=== PATIENT | male | born 1950 | race Caucasian/White ===

== ENCOUNTER 2018-03-13 07:37 | Day surgery (SDC) | payer MEDICARE, BC ==
[~2018-03-13] VITALS: Ht 175.3 cm; Wt 100.5 kg
[~2018-03-13 07:37] MED LIST: ASPI81 PO; DIAZ2 PO; FISH300C2 PO; GEMF600 PO; HYDR12.56 PO; LEXA20TA PO; LOPE2 PO; LOSA25TA31 PO; SIMV20 PO; TYLE3 PO; VITA100T15 PO
[2018-03-13] MEDS ORDERED: IOHEXOL 350 MG/ML 50 ML BTL (for Cath Lab) OTHER ONE (07:38)
[2018-03-13 08:14] VITALS: BP 143/76; PULSE 69; RESP 18; TEMP 99.2; O2SAT 95
[2018-03-13] MEDS ORDERED: POTA10CA PO (08:17)
[2018-03-13] MEDS ORDERED: TERA5CAP3 PO (08:17)
[2018-03-13] MEDS ORDERED: FISHCAP4 PO (08:17)
[2018-03-13] MEDS ORDERED: ZOLO50TA PO (08:17)
[2018-03-13] MEDS ORDERED: SOMA350T PO (08:17)
[2018-03-13] MEDS ORDERED: GEMF600T PO (08:17)
[2018-03-13] MEDS ORDERED: OMEP20TA93 PO (08:17)
[2018-03-13] MEDS ORDERED: LEVO.075 PO (08:17)
[2018-03-13] MEDS ORDERED: METO25TA3 PO (08:17)
[2018-03-13] MEDS ORDERED: HYDR7.5T76 PO (08:17)
[2018-03-13 08:29] LABS: AUTOMATED NEUTROPHIL # 5.2 TH/MM3 (1.8-7.7); BASOPHIL # 0.1 TH/MM3 (0-0.2); BASOPHIL % 0.9 % (0.0-2.0); EOSINOPHIL # 0.2 TH/MM3 (0-0.4); EOSINOPHIL % 2.6 % (0.0-4.0); HEMATOCRIT 40.6 % (39.0-51.0); HEMOGLOBIN 13.7 GM/DL (13.0-17.0); LYMPH % 26.9 % (9.0-44.0); LYMPHOCYTE # 2.2 TH/MM3 (1.0-4.8); MEAN CELL VOLUME 84.9 FL (80.0-100.0); MEAN CORPUSCULAR HEMOGLOBIN 28.6 PG (27.0-34.0); MEAN CORPUSCULAR HGB CONC 33.7 % (32.0-36.0); MEAN PLATELET VOLUME 7.7 FL (7.0-11.0); MONOCYTE # 0.6 TH/MM3 (0-0.9); NEUT % 62.6 % (16.0-70.0); PLATELET COUNT 293 TH/MM3 (150-450); RED BLOOD COUNT 4.77 MIL/MM3 (4.50-5.90); RED CELL DISTRIBUTION WIDTH 14.6 % (11.6-17.2); WHITE BLOOD COUNT 8.4 TH/MM3 (4.0-11.0)
[2018-03-13 08:42] LABS: INTERNATIONAL NORMALIZED RATIO 0.9 RATIO; PROTHROMBIN TIME - PATIENT 9.6 SEC (9.8-11.6)
[2018-03-13 08:51] LABS: BICARBONATE 26.8 MEQ/L (21.0-32.0); CREATININE 1.19 MG/DL (0.60-1.30)
[2018-03-13] MEDS ORDERED: NS 1000P @30 MLS/HR (KVO) IV SCH (09:00)
[2018-03-13] MEDS ORDERED: HEPARIN-NS/PF INJ 1,000 ML ONE (09:19)
[2018-03-13] MEDS ORDERED: MIDAZOLAM HCL 2 MG/2 ML VIAL ONE (09:19)
[2018-03-13] MEDS ORDERED: NITROGLYCERIN INJ 5 ML ONE (09:20)
[2018-03-13] MEDS ORDERED: HEPARIN SODIUM - IV 10,000 UNITS/10 ML VIAL ONE (09:20)
[2018-03-13] MEDS ORDERED: VERAPAMIL HCL 5 MG/2 ML VIAL ONE (09:32)
--- NOTE | 2018-03-13 10:28 | CATHPROC ---
[employer] HIS Report Study Information Study Number Admission Scheduled Start Study Start [id number] Mar 13 2018 7:37AM 03/13/2018 Mar 13 2018 9:25AM [facility]iac Catheterization Admit Source Facility Department Other [facility] Physician and Clinical Staff Initial Flavio Carmen Vp Genetic Vazquez Álvarez,NATALIE Vp Genetic Opal Thorpe,NATALIE Recorder Mariza Rao ,RT(R) Scrub Elvie Cuenca,RT(R) Procedures Performed Procedure Location (Site) Vessel Name Coronary Angiograms LCA Left Coronary Coronary Angiograms RCA Right Coronary L Heart Cath Wire insertion Radial (right) Radial Art. Equipment Time Screw Machine Operator Single Spindle Description Size Mfg Part Number Used/Scraped TRANSDUCER, TRUWAVE [id number] 09:32 HUMPHREY FIELDS * Used W/STOCKObatechCK *[id number] *[id number] 09:32 RFIDeas BLANKET,WARM AIR CCL * Used *[id number] 09:32 RFIDeas PACK, CCL CUSTOM * Used *[id number] 09:32 RFIDeas SUPPORT, ARTERIAL ADULT [id number] *[id number] Used [id number] 09:40 MEDTRONIC JL 3.5 DXTERITY CATHETER FR 5 Used *[id number] BAND, RADIAL COMPRESSION TR [id number] 10:15 Myla MEDICAL 24CM Used SHORT 24 *[id number] 09:32 LectureTools WIRE, EXCHANGE 260CM 3MMJ 260CM Used *[id number] 09:32 NAMIC MANIFOLD, 4 PORT * Used *[id number] 09:32 NYCOMED OMNIPAQUE, 350 MG, 150ML 150ML [id number] Used SHEATH, FR6 TRANSRADIAL RM*[id number] 09:32 TERGeoforce MEDICAL FR 6 Used SLENDER 10CM *[id number] History: Current Medications Medication Dosage/Unit Route Frequency Last Date/Time Taken LOPRESSOR FISH OIL Synthroid Zoloft History: Allergies Allergy Reaction No Known Allergies lisinopril metoprolol History: Risk Factors Family History of Hypertension Dyslipidemia Previous OR Previous Heart Failure Premature CAD Yes Yes No No No Prior Valve Prior PCI Prior CABG Surgery No No No Cerebrovascular Peripheral Artery Chronic Lung On Dialysis Diabetes Disease Disease Disease No No No No No History: Symptoms/Diagnosis Selection Items SOB History: Stress Tests Stress or Imaging Studies Performed Yes Standard Exercise Stress Test No Stress Echo No Stress Test SPECT Stress Test SPECT Result Stress Test SPECT Ischemia Risk/Extent Yes Positive Intermediate Stress Test CMR No Cardiac CTA Coronary Calcium Score No No History: Other Disease Selection Items CAD HTN History: Other Current Smoker Quit Packs a Day Years Used Pack Years No 30 Years Ago 1 10 10 Labs Hgb (g/dl) Hct (%) RBC (MIL/MM3) WBC (l/cumm) Platelets (thousands) 11.60-17.00 35.00-51.00 4.00-5.90 4.00-11.00 150.00-450.00 13.7 40.6 4.7 8.4 293 Glucose (mg/dl) BUN (mg/dl) Creatinine (mg/dl) BUN:Creatinine (1:x) 74.00-106.00 7.00-18.00 0.50-1.30 10.00-20.00 124 12 1.1 10.9 Na (meq/l) K (meq/l) 136.00-145.00 3.50-5.10 140 3.7 INR (PTT:PT) 0.90-1.10 0.9 CPK-MB (ng/ML) 0.50-3.60 Not Drawn Medication Medication Total Dose (Bolus/Oral) Medication Total Dosage/Unit 1% XYLOCAINE 5 mL FENTANYL 25 mcg RADIAL COCKTAIL 5 mL (Bolus) VERSED 0.5 mg Medications (Bolus/Oral) Medication Time Given Dosage/Unit Administered By Reason VERSED 03/13/2018 9:59:45 AM 0.5 mg Opal Thorpe 0.5 mg VERSED given in lab by Opal Thorpe RN in Left Hand via Peripheral IV. Ordered by Flavio Fields FENTANYL 03/13/2018 10:00:00 AM 25 mcg Opal Thorpe 25 mcg FENTANYL given in lab by Opal Thorpe RN in Left Hand via Peripheral IV. Ordered by Flavio Graham 1% XYLOCAINE 03/13/2018 10:00:28 AM 5 mL Flavio Fields 5 mL 1% XYLOCAINE given in lab by Flavio Fields in Right Radial via Subcutaneous. Ordered by Flavio Sosa Ntg 200mcg Verapamil 2.5mg Heparin RADIAL COCKTAIL 03/13/2018 10:02:04 AM 5 mL (Bolus) Flavio Fielsd 3000U 5 mL (Bolus) RADIAL COCKTAIL given in lab by Flavio Fields via Radial. Using [Solution Name]. O rdered by Flavio Fields. Reason: Ntg 200mcg Verapamil 2.5mg Heparin 4000U. Medication (Drip) Medication Time Given Dosage/Unit Concentration/Unit Diluent (ml) Solution IV Solutions 03/13/2018 9:30:51 AM 50 mL (IV) NaCl .9 Patient arrived on IV Solutions in Left Hand via Peripheral IV. Pump/Drip Flow using NaCl .9. Initial Case Assessment Cardiovascular HR Rhythm NIBP Chest Pain 62 sr 129/81 0 Edema Present Skin color Skin None Normal Warm Dry Circulatory - Right Pulses Dorsalis Pedis Femoral Radial 3 3 3 Scale (0,1,2,3,4,d) Circulatory - Left Pulses Dorsalis Pedis Femoral Radial 3 3 Scale (0,1,2,3,4,d) Neurological State Oriented to time-place- Alert Moves all extremities person Respiration - General Respiration Rate SpO2 (%) O2 (lpm) (B/min) 17 96 2 Final Case Assessment Cardiovascular HR Rhythm NIBP Chest Pain 62 sr 129/81 0 Edema Present Skin color Skin None Normal Warm Dry Circulatory - Right Pulses Dorsalis Pedis Femoral Radial 3 3 3 Scale (0,1,2,3,4,d) Circulatory - Left Pulses Dorsalis Pedis Femoral Radial 3 3 Scale (0,1,2,3,4,d) Neurological State Oriented to time-place- Alert Moves all extremities person Respiration - General Respiration Rate SpO2 (%) O2 (lpm) (B/min) 17 96 2 Chronological Log Time Study Chronological Log 9:18:26 Patient arrived via Bed. 9:18:31 Patient Name, D.O.B, / Armband Verified By R.N. Vitals capture started with the following parameters, Patient=Adult, Interval=5 min, Initial Pr lqgmng=110 mmHg, 9:24:31 Deflation Rate=5 mmHg, Cuff placed on Left Arm 9:29:09 HR=62 bpm, XNTE=955/81 mmhg, SpO2=93.0 %, Resp=20 B/min 9:30:36 Consent signed by the physician and the patient and verified by the [facility] staff. 9:30:37 Pre-op and post- op instructions given; patient acknowledges understanding of instructions. 9:30:40 Verbal Stimulation=2 Physical Stimulation=2 Airway=2 Respiration=2 TOTAL=8. (0=absent, 1=li mited, 2=present) 9:30:43 Allens test performed on the right radial and ulnar artery. 9:30:46 Patient has been NPO for More than 6Hrs. 9:30:47 Skin Breakdown- none per patient 9:30:48 Patient Warmer Placed on the Table. 9:30:49 [place]erson Prominences Protected 9:30:51 A # 20 IV was noted in the Hand (left). Grade = 0 9:30:51 Patient arrived on IV Solutions in Left Hand via Peripheral IV. Pump/Drip Flow using NaCl . 9. 9:30:52 History and physical on the chart or being dictated. Assessment: Initial Case, HR=62 BPM, Rhythm=sr, IFNY=130/81 mmhg, Chest Pain=0, Edema=None, Col or=Normal, Skin = Warm, Dry Right Pulses: [place] Ped=3, Femoral=3, Radial=3 9:30:52 Left Pulses: [place] Ped=3, Femoral=3 Neurological: State=Alert, Ox3, RAVI Respiration: Resp=17 B/min, SpO2=96 %, O2=2 lpm 9:31:45 Reference ECG taken 9:34:10 HR=62 bpm, XWYA=098/77 mmhg, SpO2=97.0 %, Resp=19 B/min, Pain=0, Nando=10, Baires=2 9:35:54 Right Radial and groin(s) prepped with 2% chlorhexidine, and draped after a 3 min. waiting t filomena. 9:36:03 MD paged 9:36:06 MD responded 9:38:10 Pressure channel 1 zeroed. 9:39:11 HR=61 bpm, HGKD=611/83 mmhg, SpO2=97.0 %, Resp=20 B/min, Pain=0, Nando=10, Baires=2 9:44:10 HR=60 bpm, ZLPQ=904/81 mmhg, SpO2=95.0 %, Resp=20 B/min, Pain=0, Nando=10, Baires=2 9:49:13 HR=58 bpm, GNHG=055/74 mmhg, SpO2=95.0 %, Resp=25 B/min, Pain=0, Nando=10, Baires=2 9:54:12 HR=60 bpm, FLXX=363/77 mmhg, SpO2=96.0 %, Resp=21 B/min 9:56:02 MD arrived. 9:59:11 GCMH=634/83 mmhg, SpO2=97.0 %, Resp=10 B/min Time Out. Correct patient, correct procedure, correct physician, labs, allergies, and equipment verified with director of cardiac cath lab 9:59:20 team present. Fire risk assesment completed (see hard stop sheet for coding). Time Out Concu rred by MD and individual staff in procedure. 9:59:42 Case Start 9:59:45 0.5 mg VERSED given in lab by Opal Thorpe RN in Left Hand via Peripheral IV. Ordered by Flavio Fields 10:00:00 25 mcg FENTANYL given in lab by Opal Thorpe RN in Left Hand via Peripheral IV. Ordered by Flavio Fields 5 mL 1% XYLOCAINE given in lab by Flavio Fields in Right Radial via Subcutaneous. Ordered by Donnie 10:00:28 Flavio Nicole 5 mL (Bolus) RADIAL COCKTAIL given in lab by Flavio Fields via Radial. Using [Solution Na me]. Ordered by 10:02:04 Flavio Fields Reason: Ntg 200mcg Verapamil 2.5mg Heparin 4000U. 10:02:18 Access site was Right Radial Artery. 10:02:45 A wire was inserted via Radial (right). 10:03:31 A SHEATH, FR6 Prelude Merit 11CM FR 6 was advanced into the Fem Art (right) using the Percu taneous technique. A JR 4.0 INFINITI CATHETER FR 5 was advanced over a wire. OMNIPAQUE, 350 MG, 150ML 150ML was us ed for 10:04:06 injections. 10:04:14 HR=72 bpm, IHME=350/64 mmhg, SpO2=95.0 %, Resp=13 B/min, Pain=0, Nando=10, Baires=2 Recorded Pressure: LV, HR=74, Condition=Condition 1 10:05:21 (Left Ventricle) LV 109/12/19 Recorded Pressure: LV, Ao, HR=65, Condition=Condition 1 10:05:33 (Left Ventricle) LV 103/1/11, (Aorta) Ao 107/60/85 10:06:07 The RCA was injected and visualized at various angles. OMNIPAQUE, 350 MG, 150ML 150ML used . 10:07:48 Catheter was removed A JL 3.5 DXTERITY CATHETER FR 5 was advanced over a wire. OMNIPAQUE, 350 MG, 150ML 150ML was us ed for 10:08:42 injections. 10:09:09 HR=66 bpm, GWIF=621/74 mmhg, SpO2=94.0 %, Resp=17 B/min, Pain=0, Nando=10, Baires=2 10:09:34 The LCA was injected and visualized at various angles. OMNIPAQUE, 350 MG, 150ML 150ML used . 10:14:08 HR=75 bpm, UPPQ=979/76 mmhg, SpO2=94.0 %, Resp=18 B/min, Pain=0, Nando=10, Baires=2 10:15:14 Catheter was removed Radial Compression Device Used. 9 mLs of air placed in BAND, RADIAL COMPRESSION TR SHORT 24 24C M. Affected 10:16:04 hand 96 % O2 saturation. 10:17:43 Case End (Physician broke scrub) Assessment: Final Case, HR=62 BPM, Rhythm=sr, LFUF=684/81 mmhg, Chest Pain=0, Edema=None, [place] r=Normal, Skin = Warm, Dry Right Pulses: [place] Ped=3, Femoral=3, Radial=3 10:18:07 Left Pulses: [place] Ped=3, Femoral=3 Neurological: State=Alert, Ox3, RAVI Respiration: Resp=17 B/min, SpO2=96 %, O2=2 lpm 10:18:13 Catheter(s) removed without difficulty 10:18:22 Sterile dressing applied to site 10:18:23 No case complications noted. 10:18:25 Cine recording checked. 10:18:28 Bedside Report will be given. 10:18:31 A Left Heart Cath was performed. 10:19:11 HR=66 bpm, JGSM=337/84 mmhg, SpO2=96.0 %, Resp=16 B/min 10:23:51 Vitals capture stopped. 10:24:00 [facility] End Study - Contrast Media Used In Study Contrast Total Opened (mL) Total Used (mL) Total Wasted (mL) Omnipaque 25 25 0 End Study - Maximum Contrast Load Max Contrast Load (mL) 456.8 End Study - Radiation Exposure Fluoro Time (minutes) 1.6 End Study - Sheaths Sheaths Pulled By Sheath Hold Time (min) Flavio Fields End Study - Patient Disposition Complications Transferred To Interventional Outcome No Telemetry Bed No attempt made
[2018-03-13] MEDS ORDERED: MISC INFORMATION XX ONE (10:30)
[2018-03-13] MEDS ORDERED: ASPI81CH6 CHEW (11:33)
[2018-03-13] MEDS ORDERED: AMLO10 PO (11:33)
--- NOTE | 2018-03-13 14:03 | EKG ---
Date Performed: 03/13/2018 Time Performed: 08:44:42 PTAGE: 67 years EKG: Sinus rhythm . Normal ECG NO PREVIOUS TRACING DOCTOR: Abel Boo Interpretating Date/Time 03/13/2018 14:01:44
[2018-03-13] MEDS ORDERED: DEXTROSE 50% IN WATER 50 ML VIAL(D50) IV PUSH PRN (14:30)
[2018-03-13] MEDS ORDERED: CHLORHEXIDINE GLUCONATE 4% SOLN 120 ML BTL TOPICAL SCH (14:30)
--- NOTE | 2018-03-13 15:37 | RADRPT ---
EXAM DATE: 03/13/2018 3:25 PM EDT AGE/SEX: 67 years / Male INDICATIONS: Evaluate for pneumonia, pneumothorax or communicable disease. Preop chest for CABG CLINICAL DATA: This is the patient's initial encounter. Patient reports that signs and symptoms have been present for 1 day and indicates a pain score of 0/10. MEDICAL/SURGICAL HISTORY: Cardiovascular disease. None. COMPARISON: No prior exams available for comparison. FINDINGS: A single AP view of the chest demonstrates the lungs to be symmetrically aerated without evidence of mass, infiltrate or effusion. The cardiomediastinal contours are unremarkable. Osseous structures a re intact. CONCLUSION: Negative examination. Electronically signed by: Yahir Tapia MD 03/13/2018 3:36 PM EDT
[2018-03-13 15:53] LABS: BILIRUBIN, URINE NEG (NEG); BLOOD, URINE NEG (NEG); GLUCOSE,URINE NEG (NEG); KETONE, URINE NEG (NEG); MUCUS URINE FEW /lpf (OCC); NITRITE,URINE NEG (NEG); URINE COLOR YELLOW (YELLW/STRAW); URINE LEUKOCYTE ESTERASE NEG (NEG)
[2018-03-13] MEDS ORDERED: INSULIN REGULAR (IV INFUSION) 100 UNITS in SODIUM CHLORIDE 0.9% INJ 99 ML IV PRN (16:00)
[2018-03-13 16:01] LABS: ALBUMIN 3.8 GM/DL (3.4-5.0); ALT (GPT) 23 U/L (12-78); AST (GOT) 19 U/L (15-37); DIRECT BILIRUBIN ADULT LESS THAN 0.1 MG/DL (0.0-0.2)
[2018-03-13 16:02] LABS: ALKALINE PHOSPHATASE 108 U/L (45-117); INDIRECT BILIRUBIN 0.1 MG/DL (0.0-0.8); TOTAL BILIRUBIN ADULT 0.2 MG/DL (0.2-1.0); TOTAL PROTEIN 7.3 GM/DL (6.4-8.2)
--- NOTE | 2018-03-13 17:00 | PD.CAR.PN ---
CVT Progress Note Subjective/Hospital Course: pt seen and evaluated / full consult to follow sts data discussed with pt pt undecisive about CABG vs high risk PCI/ wants to discuss further with Dr Doll RISK SCORES About the STS Risk Calculator Procedure: CAB Only Risk of Mortality: 0.663% Morbidity or Mortality: 8.646% Long Length of Stay: 2.7% Short Length of Stay: 59.988% Permanent Stroke: 0.657% Prolonged Ventilation: 5.044% DSW Infection: 0.307% Renal Failure: 2.09% Reoperation: 3.42% Objective: Vital Signs Date Time Temp Pulse Resp B/P (MAP) Pulse Ox O2 Delivery O2 Flow Rate FiO2 03/13/18 10:29 95 Room Air 03/13/18 08:14 99.2 69 18 143/76 (98) 95 Labs: Laboratory Tests Test 03/13/18 08:00 03/13/18 12:50 03/13/18 15:20 White Blood Count 8.4 TH/MM3 (4.0-11.0) Red Blood Count 4.77 MIL/MM3 (4.50-5.90) Hemoglobin 13.7 GM/DL (13.0-17.0) Hematocrit 40.6 % (39.0-51.0) Mean Corpuscular Volume 84.9 FL (80.0-100.0) Mean Corpuscular Hemoglobin 28.6 PG (27.0-34.0) Mean Corpuscular Hemoglobin Concent 33.7 % (32.0-36.0) Red Cell Distribution Width 14.6 % (11.6-17.2) Platelet Count 293 TH/MM3 (150-450) Mean Platelet Volume 7.7 FL (7.0-11.0) Neutrophils (%) (Auto) 62.6 % (16.0-70.0) Lymphocytes (%) (Auto) 26.9 % (9.0-44.0) Monocytes (%) (Auto) 7.0 % (0.0-8.0) Eosinophils (%) (Auto) 2.6 % (0.0-4.0) Basophils (%) (Auto) 0.9 % (0.0-2.0) Neutrophils # (Auto) 5.2 TH/MM3 (1.8-7.7) Lymphocytes # (Auto) 2.2 TH/MM3 (1.0-4.8) Monocytes # (Auto) 0.6 TH/MM3 (0-0.9) Eosinophils # (Auto) 0.2 TH/MM3 (0-0.4) Basophils # (Auto) 0.1 TH/MM3 (0-0.2) CBC Comment DIFF FINAL Differential Comment Prothrombin Time 9.6 SEC (9.8-11.6) Prothromb Time International Ratio 0.9 RATIO Activated Partial Thromboplast Time 29.8 SEC (24.3-30.1) Blood Urea Nitrogen 12 MG/DL (7-18) Creatinine 1.19 MG/DL (0.60-1.30) Random Glucose 124 MG/DL (74-106) Calcium Level 9.0 MG/DL (8.5-10.1) Sodium Level 140 MEQ/L (136-145) Potassium Level 3.7 MEQ/L (3.5-5.1) Chloride Level 104 MEQ/L (98-107) Carbon Dioxide Level 26.8 MEQ/L (21.0-32.0) Anion Gap 9 MEQ/L (5-15) Estimat Glomerular Filtration Rate 61 ML/MIN (>89) Total Bilirubin 0.2 MG/DL (0.2-1.0) Direct Bilirubin LESS THAN 0.1 MG/DL Indirect Bilirubin 0.1 MG/DL (0.0-0.8) Aspartate Amino Transf (AST/SGOT) 19 U/L (15-37) Alanine Aminotransferase (ALT/SGPT) 23 U/L (12-78) Alkaline Phosphatase 108 U/L (45-117) Total Protein 7.3 GM/DL (6.4-8.2) Albumin 3.8 GM/DL (3.4-5.0) Urine Color YELLOW (YELLW/STRAW) Urine Turbidity CLEAR (CLEAR) Urine pH 6.0 (5.0-8.5) Urine Specific [place] 1.032 (1.002-1.035) Urine Protein NEG mg/dL (NEG-TRACE) Urine Glucose (UA) NEG mg/dL (NEG) Urine Ketones NEG mg/dL (NEG) Urine Occult Blood NEG (NEG) Urine Nitrite NEG (NEG) Urine Bilirubin NEG (NEG) Urine Urobilinogen LESS THAN 2.0 MG/DL (LESS Urine Leukocyte Esterase NEG (NEG) Urine RBC LESS THAN 1 /hpf (0-3) Urine WBC LESS THAN 1 /hpf (0-5) Urine Mucus FEW /lpf (OCC) Microscopic Urinalysis Comment CULT NOT INDICATED Result Diagram: 03/13/18 0800 03/13/18 0800 Apoorva Granados Mar 13, 2018 17:00
--- NOTE | 2018-03-13 17:09 | RADRPT ---
EXAM DATE: 03/13/2018 5:04 PM EDT AGE/SEX: 67 years / Male INDICATIONS: Pre-Op CABG. CLINICAL DATA: This is the patient's initial encounter. Patient reports that signs and symptoms have been present for 1 day and indicates a pain score of 0/10. MEDICAL/SURGICAL HISTORY: Hypercholesterolemia. Hypertension. Bilateral hearing loss. Substanc e abuse.Violent behavior. Coronary artery disease. . Schrapnel removal. COMPARISON: No prior exams available for comparison. TECHNIQUE: Venous ultrasound of both lower extremities was performed from the inguinal ligament to t he proximal calf. Real-time, color Doppler and spectral tracing, compression and augmentation techni ques were used. FINDINGS: Right Leg: There is normal compressibility of the deep venous system from the inguinal region to the proximal calf. No echogenic clot is seen in the lumen of the common femoral, femoral, popliteal, an d posterior tibial veins. There is a normal response of the venous system to proximal and distal aug mentation and respiration. Left Leg: There is normal compressibility of the deep venous system from the inguinal region to the proximal calf. No echogenic clot is seen in the lumen of the common femoral, femoral, popliteal, and posterior tibial veins. There is a normal response of the venous system to proximal and distal augm entation and respiration. CONCLUSION: 1. The study is negative for bilateral lower extremity deep venous thrombosis. Electronically signed by: Sergei Ramirez MD 03/13/2018 5:08 PM EDT
--- NOTE | 2018-03-13 17:09 | MB ---
cc: Apoorva Granados Jacqueline R ARNP DATE: 03/13/2018 HISTORY OF PRESENT ILLNESS: A 67-year-old male, patient of Dr. Ana Doll and Dr. James Knight, who apparently started having some chest discomfort recently and underwent an exercise stress test, which was positive. Exercise stress test showed some moderate anterolateral ischemia. He underwent cardiac catheterization today by Dr. Fields, mid distal LAD of 80%, the diagonal was 70%, the circ was 80% and the RCA 70%, ejection fraction of 60%. We were consulted to evaluate and give opinion for coronary artery bypass graft. The patient also has a history of hypothyroidism, hyperlipidemia, hypertension, cervical spine stenosis, gastroesophageal reflux disease, benign prostatic hypertrophy, neuropathy. He did have an echocardiogram that showed an ejection fraction of 62%, no evidence of valvular disease. PAST SURGICAL HISTORY: Includes back surgery, colonoscopy. He had some hand injury, foot injury related to an injury from the [place] War. ALLERGIES: LISINOPRIL AND LOPRESSOR. HOME MEDICATIONS: 1. Amlodipine. 2. Aspirin. 3. Atorvastatin. 4. BuSpar 5. Fish oil 6. Gemfibrozil 7. Hydrocodone p.r.n. however, he is on 8. Metoprolol. 6. Omeprazole. 7. Potassium. 8. Soma. 9. Synthroid. 10. Terazosin. 11. Zoloft. FAMILY HISTORY: Father had coronary artery disease; however, from pancreatic cancer. Mother from old age. SOCIAL HISTORY: The patient is , retired postal service. Prior tobacco abuse, smoked for 10 years, quit 30 years ago. No alcohol. REVIEW OF SYSTEMS: GENERAL: No night sweats, fever, heat and cold intolerance. SKIN: No psoriasis, itching or hives. HEENT: No blurred vision, hearing loss. RESPIRATORY: Positive for shortness of breath. CARDIOVASCULAR: As above in the HPI. GENITOURINARY: No burning, frequency, urgency. CENTRAL NERVOUS SYSTEM: No history of TIA, CVA or seizure disorder. ENDOCRINOLOGY: Positive for hypothyroidism. PHYSICAL EXAMINATION: VITAL SIGNS: Blood pressure stable at 130/80, heart rate of 78. GENERAL: The patient is awake, alert, in no acute distress. HEENT: Head is normocephalic, atraumatic. Pupils equal and reactive. Oral mucosa pink, moist. NECK: Supple. No JVD. CARDIOVASCULAR: Sounds S1, S2. Regular rate and rhythm. No audible rubs, murmurs or gallops. LUNGS: Clear to auscultation. No wheezes, rales or rhonchi. ABDOMEN: Soft, nontender. No masses or organomegaly. EXTREMITIES: No cyanosis, clubbing, or edema. LABORATORY DATA: Sodium 140, potassium 3.7, BUN of 12, creatinine 1.19, hemoglobin 13, hematocrit of 40, white cell count 8.4, platelet count of 293. INR 0.9. Urinalysis is unremarkable. MRSA screen pending. IMAGING STUDIES: Chest x-ray unremarkable. Pulmonary function test study pending. Carotid ultrasound, leg vein mapping pending. ASSESSMENT AND PLAN: This is a very pleasant 67-year-old male with multivessel coronary disease. At this time, I would like to speak with his field artillery senior sergeant, Dr. Doll, in regards to the catheterization by Dr. Fields about possible staged PCI versus coronary artery bypass grafting. The films will be evaluated by Dr. Barraza and further information given. He can followup in our office, if the patient decides to proceed with surgery. SALONI Chopra MD JRT/ , 04:42 PM , 05:08 PM
--- NOTE | 2018-03-13 17:11 | RADRPT ---
EXAM DATE: 03/13/2018 5:02 PM EDT AGE/SEX: 67 years / Male INDICATIONS: Pre-Op CABG. CLINICAL DATA: This is the patient's initial encounter. Patient reports that signs and symptoms have been present for 1 day and indicates a pain score of 0/10. MEDICAL/SURGICAL HISTORY: Hypercholesterolemia. Hypertension. Bilateral hearing loss. Substanc e abuse.Violent behavior. Coronary artery disease. . Schrapnel removal. COMPARISON: No prior exams available for comparison. MEASUREMENTS: RIGHT THIGH: Proximal:__4 mm Mid:__ 4 mm Distal:__4 mm LEFT THIGH: Proximal:__3 mm Mid:__4 mm Distal:__4 mm RIGHT CALF: Proximal:__3 mm Mid:__2 mm Distal:__3 mm LEFT CALF: Proximal:__3 mm Mid:__2 mm Distal:__3 mm FINDINGS: The venous system of the lower extremities are patent by color Doppler imaging. Measurements of the leg veins (in mm) are listed above. CONCLUSION: Superficial venous system is patent with greater saphenous venous measurements given above. Electronically signed by: Sergei Ramirez MD 03/13/2018 5:10 PM EDT
[2018-03-13 17:33] LABS: HEMOGLOBIN A1C 5.7 % (4.3-6.0)
--- NOTE | 2018-03-13 17:36 | RADRPT ---
EXAM DATE: 03/13/2018 5:08 PM EDT AGE/SEX: 67 years / Male INDICATIONS: Pre-Op CABG. CLINICAL DATA: This is the patient's initial encounter. Patient reports that signs and symptoms have been present for 1 day and indicates a pain score of 0/10. MEDICAL/SURGICAL HISTORY: Hypercholesterolemia. Hypertension. Bilateral hearing loss. Substanc e abuse.Violent behavior. Coronary artery disease. . Schrapnel removal. COMPARISON: No prior exams available for comparison. VELOCITY PARAMETERS: ICA/CCA Ratio: Right 0.96 , Left 1.24 ICA: Right 90 cm/sec, Left 131 cm/sec CCA: Right 94 cm/sec, Left 106 cm/sec ECA: Right 120 cm/sec, Left 125 cm/sec Vertebral: Right 45 cm/sec antegrade, Left 32 cm/sec antegrade FINDINGS: Right Carotid: Mild heterogeneous plaque without evidence of significant stenosis is noted. Left Carotid: Mild heterogeneous plaque without evidence of significant stenosis is noted. Other: Antegrade flow is identified in both vertebral arteries. CONCLUSION: 1. Right Internal Carotid Artery: Findings indicate <50% stenosis. 2. Left Internal Carotid Artery: Findings indicate <50% stenosis. 3. Antegrade flow both vertebral arteries. Electronically signed by: Sergei Ramirez MD 03/13/2018 5:35 PM EDT
--- NOTE | 2018-03-19 01:31 | MA ---
cc: Flavio Fields DO DATE: 03/13/2018 PROCEDURE: Left heart catheterization, coronary angiogram, moderate sedation, 20 minutes. PREPROCEDURE DIAGNOSIS: Shortness of breath/chest pain, on multiple antianginals, abnormal stress test, abnormal CT of the coronaries. POSTPROCEDURE DIAGNOSIS: Multivessel coronary artery disease. MEDICATIONS: Versed 0.5 mg, fentanyl 25 mcg, verapamil 2.5 mg, nitroglycerine 200 mcg, heparin 4000 units. CONTRAST USED: 25 mL FLUOROSCOPY: 1.6 minutes. MODERATE SEDATION: 20 minutes. ESTIMATED BLOOD LOSS: 10 mL FRAILTY SCORE: Three. PROCEDURAL SUMMARY: Yahir Stoddard is a pleasant 67-year-old male who sees my partner, Dr. Doll, in the office and was noted to have chest pain and shortness of breath while on multiple antianginals. He underwent stress testing, as well as CTA of the coronaries, which were both abnormal and so he was recommended cardiac catheterization. Risks, benefits and alternatives were explained to him and he consented to such. He was brought to the lab and prepped in the usual sterile fashion. The right radial artery was accessed using a modified Seldinger technique and placed on a 5/6 Ukrainian slender sheath. This is easily aspirated and flushed. A JR4 was advanced over a J-wire to the ascending aorta and across the aortic valve for measurement of left ventricular pressure. This was pulled back across the aortic valve, showing no significant gradient of aortic stenosis. JR4 was used for selective angiography of the right coronary artery system. This was then exchanged out for a JL3.5, which was used for selective angiography of the left coronary artery system. JL3.5 was removed over a J-wire. A radial band was placed over the arteriotomy site for hemostasis. The patient left the cath lab manager cardiovascularly stable. FINDINGS: LEFT MAIN: Normal-sized vessel with adequate reflux. It bifurcates into LAD and circumflex. LEFT ANTERIOR DESCENDING: Normal sized vessel, with 30% disease throughout the proximal portion and a focal 80% lesion in the mid portion. Gives off 1 major diagonal, which has an upper and lower branch and no significant disease. LEFT CIRCUMFLEX: Moderate to large size vessel, with 80% lesion in the proximal to mid portion. Distal to this, it gives off 2 obtuse marginals, as well as a left posterior descending artery. RIGHT CORONARY ARTERY: Moderate size vessel with a 70% lesion in the mid portion. Distally, it gives off a PDA, with no significant disease. LEFT VENTRICULAR END-DIASTOLIC PRESSURE: 11. IMPRESSION: 1. Chest pain/shortness of breath, on multiple antianginals. 2. Abnormal stress test and CT angiogram of the coronaries. 3. Multivessel coronary artery disease. RECOMMENDATIONS: 1. Mr. Stoddard underwent cardiac catheterization and was found to have multivessel disease. 2. He will see CT surgery for consideration of coronary artery bypass grafting. We did also discuss consideration of multivessel coronary artery stenting, as his lesions are overall focal. 3. He would like to discuss his options with Dr. Doll after seeing CT surgery before deciding on how to proceed. Thank you for allowing me to see Yahir Stoddard. If there are any questions, please do not hesitate to call. DO CHARLES Garza/FARRAH , 12:22 AM , 01:29 AM
== END 2018-03-13 17:13 | disposition home or self-care (01) ==
LOC: HDOC 07:37 → HDIC 07:37 → HDOC 17:13
PROVIDERS: ATTEND Nuclear Medicine Nuclear Cardiology
DX: I25.10 Atherosclerotic heart disease of native coronary artery without angina pectoris (principal); R94.39 Abnormal result of other cardiovascular function study; R06.02 Shortness of breath; R07.9 Chest pain, unspecified; E78.00 Pure hypercholesterolemia, unspecified; H91.93 Unspecified hearing loss, bilateral; I65.23 Occlusion and stenosis of bilateral carotid arteries; E03.9 Hypothyroidism, unspecified; E78.5 Hyperlipidemia, unspecified; M48.02 Spinal stenosis, cervical region; K21.9 Gastro-esophageal reflux disease without esophagitis; N40.0 Benign prostatic hyperplasia without lower urinary tract symptoms; G62.9 Polyneuropathy, unspecified; Z87.891 Personal history of nicotine dependence; E87.6 Hypokalemia; I34.0 Nonrheumatic mitral (valve) insufficiency; I07.1 Rheumatic tricuspid insufficiency; I11.9 Hypertensive heart disease without heart failure; I38 Endocarditis, valve unspecified; G47.00 Insomnia, unspecified; K57.90 Diverticulosis of intestine, part unspecified, without perforation or abscess without bleeding; K76.0 Fatty (change of) liver, not elsewhere classified; M25.50 Pain in unspecified joint
CPT/HCPCS: 71045; 80048; 80076; 81001; 83036; 85025; 85610; 85730; 86850; 86900; 86901; 87641; 93005; 93458; 93880; 93970; 93998; 94010; 99152; 99153; C1769; C1893; J1644; J2250; J3010; Q9967

== ENCOUNTER 2018-03-27 06:48 | Day surgery (SDC) | payer MEDICARE, BC ==
[2018-03-27] VITALS (10 sets, daily range): BP systolic 151; BP diastolic 78–80; PULSE 64–80; RESP 18–20; TEMP 98.7–98.8; O2SAT 94–95
[~2018-03-27] VITALS: Ht 175.3 cm; Wt 99.0 kg
[~2018-03-27 06:48] MED LIST changes: +AMLO10 PO; -ASPI81 PO; +ASPI81CH6 CHEW; -DIAZ2 PO; -FISH300C2 PO; +FISHCAP4 PO; -GEMF600 PO; +GEMF600T PO; -HYDR12.56 PO; +HYDR7.5T76 PO; +LEVO.075 PO; -LEXA20TA PO; -LOPE2 PO; -LOSA25TA31 PO; +METO25TA3 PO; +OMEP20TA93 PO; +POTA10CA PO; -SIMV20 PO; +SOMA350T PO; +TERA5CAP3 PO; -TYLE3 PO; -VITA100T15 PO; +ZOLO50TA PO
[2018-03-27] MEDS ORDERED: IOHEXOL 350 MG/ML 100 ML BTL (for Cath Lab) OTHER ONE (06:49)
[2018-03-27 07:25] LABS: AUTOMATED NEUTROPHIL # 5.4 TH/MM3 (1.8-7.7); BASOPHIL # 0.1 TH/MM3 (0-0.2); EOSINOPHIL # 0.2 TH/MM3 (0-0.4); EOSINOPHIL % 2.7 % (0.0-4.0); HEMATOCRIT 41.7 % (39.0-51.0); LYMPH % 28.5 % (9.0-44.0); LYMPHOCYTE # 2.5 TH/MM3 (1.0-4.8); MEAN CELL VOLUME 85.4 FL (80.0-100.0); MEAN CORPUSCULAR HEMOGLOBIN 28.7 PG (27.0-34.0); MEAN CORPUSCULAR HGB CONC 33.5 % (32.0-36.0); MEAN PLATELET VOLUME 7.2 FL (7.0-11.0); MONO % 7.2 % (0.0-8.0); MONOCYTE # 0.6 TH/MM3 (0-0.9); NEUT % 60.6 % (16.0-70.0); PLATELET COUNT 278 TH/MM3 (150-450); RED BLOOD COUNT 4.88 MIL/MM3 (4.50-5.90); RED CELL DISTRIBUTION WIDTH 14.7 % (11.6-17.2); WHITE BLOOD COUNT 8.9 TH/MM3 (4.0-11.0)
[2018-03-27] MEDS ORDERED: SODIUM CHLOR 0.9% 1000 ML INJ 1,000 ML IV SCH ×2 (07:30→10:10)
[2018-03-27 07:33] LABS: PROTHROMBIN TIME - PATIENT 9.9 SEC (9.8-11.6)
[2018-03-27] MEDS ORDERED: ATOR40TA16 PO (07:33)
[2018-03-27] MEDS ORDERED: [UNRECOGNIZED DRUG - OTHER] PO (07:33)
[2018-03-27] MEDS ORDERED: BUSP15TA PO (07:33)
[2018-03-27 07:37] LABS: BICARBONATE 27.6 MEQ/L (21.0-32.0); CALCIUM 8.8 MG/DL (8.5-10.1); CREATININE 1.19 MG/DL (0.60-1.30)
[2018-03-27] MEDS ORDERED: MIDAZOLAM HCL 2 MG/2 ML VIAL ONE (08:00)
[2018-03-27] MEDS ORDERED: HEPARIN-NS/PF INJ 1,000 ML ONE (08:00)
[2018-03-27] MEDS ORDERED: HEPARIN SODIUM - IV 10,000 UNITS/10 ML VIAL ONE (08:00)
[2018-03-27] MEDS ORDERED: NITROGLYCERIN INJ 5 ML ONE (08:11)
[2018-03-27] MEDS ORDERED: VERAPAMIL HCL 5 MG/2 ML VIAL ONE (08:11)
[2018-03-27] MEDS ORDERED: TICAGRELOR 90 MG TAB PO ONE (09:56)
[2018-03-27] MEDS ORDERED: ACETAMINOPHEN 325 MG TAB PO PRN (10:15)
[2018-03-27] MEDS ORDERED: MISC INFORMATION XX ONE (10:15)
[2018-03-27] MEDS ORDERED: oxyCODONE/ACETAMINOPHEN 5 MG/325 MG TAB PO PRN (10:15)
[2018-03-27] MEDS ORDERED: oxyCODONE/ACETAMINOPHEN 10 MG/325 MG TAB PO PRN (10:15)
[2018-03-27] MEDS ORDERED: ONDANSETRON ODT 4 MG TAB SL PRN (10:15)
[2018-03-27] MEDS ORDERED: MORPHINE SULFATE 4 MG/ML INJ IV PUSH PRN (10:15)
--- NOTE | 2018-03-27 10:21 | CATHPROC ---
[facility] HIS Report Study Information Study Number Admission Scheduled Start Study Start [id number] Mar 27 2018 6:48AM 03/27/2018 Mar 27 2018 7:42AM [place] [facility] Cardiac Catheterization Admit Source Facility Department Other [facility] [employer] English Teacher Physician and Clinical Staff Initial Flavio Carmen Skill Labor Vazquez Khan,NATALIE Recorder Mariza Rao ,RT(R) Scrub HostSerge nayak,RT(R) Scrub Student, PULPWOOD DEALER/RT(R) Procedures Performed Procedure Location (Site) Vessel Name Drug Eluting Inflatio CIRC Mid CIRC Drug Eluting Inflatio LAD Mid Left Coronary L Heart Cath PTCA CIRC Mid CIRC PTCA LAD Mid Left Coronary Wire insertion Fem Art (right) Femoral Art Wire insertion Radial (right) Radial Art. Equipment Time Word Processor Operator Description Size Mfg Part Number Used/Scraped WIRE, BALANCE MIDDLEWEIGHT [id number] 09:04 [employer] 190CM Used 190CM *[id number] TRANSDUCER, TRUWAVE [id number] 07:47 HUMP[employer]Y FIELDS * Used W/STOCKCOCK *[id number] 07:47 [email or web address] BLANKET,WARM AIR CCL * Used *[id number] 07:47 [email or web address] PACK, CCL CUSTOM * Used *[id number] 07:47 [email or web address] SUPPORT, ARTERIAL ADULT 32424 *[id number] Used [id number] 09:15 [employer] BALLOON, 2.5 X 6MM EUPHORA 6MM Used *[id number] 09:36 [employer] BALLOON, 3.0 X 12MM EUPHORA 12MM Used *[id number] BALLOON, 3.0 X 8MM NC [id number] 09:25 [employer] 8MM Used EUPHORA *[id number] BALLOON, 4.0 X 8MM NC [id number] 09:46 [employer] 8MM Used EUPHORA *[id number] 09:21 [employer] STENT, 3.0 12MM JOY 3.0 12MM Used *[id number] 09:41 [employer] STENT, 3.5 15MM JOY 3.5 15MM Used *[id number] 08:55 [employer]/AVE EBU 3.5 Z2 GUIDE CATHETER FR 6 Used *[id number] 07:51 [employer] 30 SMLIEY INDEFLATOR Used *[id number] BAND, RADIAL COMPRESSION TR [id number] 09:57 [employer] MEDICAL 24CM Used SHORT 24 *[id number] 07:47 [employer] MEDICAL WIRE, EXCHANGE 260CM 3MMJ 260CM Used *[id number] 07:47 NAMIC MANIFOLD, 4 PORT * Used *[id number] 07:47 NYCOMED OMNIPAQUE, 350 MG, 150ML 150ML [id number] Used SHEATH, FR6 TRANSRADIAL [id number] 07:47 [employer] MEDICAL FR 6 Used SLENDER 10CM *[id number] Equipment Model, Serial, Lot Number and Expiration Data Description Model Number Serial Number Lot Number Expiration Date STENT, 3.0 12MM JOY [id number] 10-31-2019 STENT, 3.5 15MM JOY [id number] 08-29-2019 History: Current Medications Medication Dosage/Unit Route Frequency Last Date/Time Taken FISH OIL Gemfibrozil Beta Ed Synthroid Zoloft ASA NORVASC Statins (any) History: Allergies Allergy Reaction No Known Allergies lisinopril metoprolol History: Risk Factors Family History of Hypertension Dyslipidemia Previous KS Previous Heart Failure Premature CAD Yes Yes Yes No No Prior Valve Prior PCI Prior CABG Surgery No No No Cerebrovascular Peripheral Artery Chronic Lung On Dialysis Diabetes Disease Disease Disease No No No No No History: Stress Tests Stress or Imaging Studies Performed No History: Other Current Smoker Quit Packs a Day Years Used Pack Years No 40 Years Ago 1 10 10 Labs Hgb (g/dl) Hct (%) WBC (l/cumm) Platelets (thousands) 11.60-17.00 35.00-51.00 4.00-11.00 150.00-450.00 14.0 41.7 8.9 278 Glucose (mg/dl) BUN (mg/dl) Creatinine (mg/dl) BUN:Creatinine (1:x) 74.00-106.00 7.00-18.00 0.50-1.30 10.00-20.00 124 13 1.1 11.8 Na (meq/l) K (meq/l) Cl (meq/l) 136.00-145.00 3.50-5.10 98.00-107.00 143 4 107 INR (PTT:PT) 0.90-1.10 1 CPK-MB (ng/ML) 0.50-3.60 Not Drawn Medication Medication Total Dose (Bolus/Oral) Medication Total Dosage/Unit 1% XYLOCAINE 5 mL BRILLINTA 180 mg FENTANYL 25 mcg HEPARIN 6000 units RADIAL COCKTAIL 5 mL (Bolus) VERSED 0.5 mg Medications (Bolus/Oral) Medication Time Given Dosage/Unit Administered By Reason VERSED 03/27/2018 9:01:34 AM 0.5 mg Bill, Vazquez 0.5 mg VERSED given in lab by Vazquez Khan RN in Left Hand via Peripheral IV. Ordered by Srinivas Fields 1% XYLOCAINE 03/27/2018 9:02:25 AM 5 mL Flavio Fields 5 mL 1% XYLOCAINE given in lab by Flavio Fields in Right Radial via Subcutaneous. Ordered by Flavio Sosa FENTANYL 03/27/2018 9:02:35 AM 25 mcg Bill, Vazquez 25 mcg FENTANYL given in lab by Vazquez Khan RN in Left Hand via Peripheral IV. Ordered by Flavio Fields Ntg 200mcg Verapamil 2.5mg Heparin RADIAL COCKTAIL 03/27/2018 9:05:38 AM 5 mL (Bolus) Flavio Fields 3000U 5 mL (Bolus) RADIAL COCKTAIL given in lab by Flavio Fields in Right Radial via Radial. Using [S olution Name]. Ordered by Flavio Fields Reason: Ntg 200mcg Verapamil 2.5mg Heparin 4000U. HEPARIN 03/27/2018 9:07:55 AM 6000 units Bill Vazquez 6000 units HEPARIN given in lab by Vazquez Khan RN in Left Hand via Peripheral IV. Ordered by Flavio Graham BRILLINTA 03/27/2018 10:05:05 AM 180 mg Bill, Vazquez 180 mg BRILLINTA given in lab by Vazquez Khan RN in Per mouth via Oral. Ordered by Flavio Fields Medication (Drip) Medication Time Given Dosage/Unit Concentration/Unit Diluent (ml) Solution IV Solutions 03/27/2018 8:35:50 AM 50 mL (IV) NaCl .9 Patient arrived on IV Solutions in Left Hand via Peripheral IV. Pump/Drip Flow using NaCl .9. Initial Case Assessment Cardiovascular HR Rhythm NIBP Chest Pain 62 sr 154/88 0 Edema Present Skin color Skin None Normal Warm Dry Circulatory - Right Pulses Dorsalis Pedis Femoral Radial 3 3 3 Scale (0,1,2,3,4,d) Circulatory - Left Pulses Dorsalis Pedis Femoral Radial 3 3 Scale (0,1,2,3,4,d) Neurological State Oriented to time-place- Alert Moves all extremities person Respiration - General Respiration Rate SpO2 (%) (B/min) 22 93 Final Case Assessment Cardiovascular HR Rhythm NIBP Chest Pain 71 sr 168/92 0 Edema Present Skin color Skin None Normal Warm Dry Circulatory - Right Pulses Dorsalis Pedis Femoral Radial 3 3 3 Scale (0,1,2,3,4,d) Circulatory - Left Pulses Dorsalis Pedis Femoral Radial 3 3 Scale (0,1,2,3,4,d) Neurological State Oriented to time-place- Alert Moves all extremities person Respiration - General Respiration Rate SpO2 (%) (B/min) Chronological Log Time Study Chronological Log 8:30:14 Patient arrived via Bed. 8:30:14 Patient Name, D.O.B, / Armband Verified By R.N. 8:30:17 Consent signed by the physician and the patient and verified by the [employer] English Teacher staff. 8:30:21 Pre-op and post- op instructions given; patient acknowledges understanding of instructions. 8:35:32 Verbal Stimulation=2 Physical Stimulation=2 Airway=2 Respiration=2 TOTAL=8. (0=absent, 1=li mited, 2=present) 8:35:36 Allens test performed on the right radial and ulnar artery. Positive 8:35:40 Patient has been NPO for More than 6Hrs. 8:35:41 Skin Breakdown- none per patient 8:35:43 Patient Warmer Placed on the Table. 8:35:43 Gerson Prominences Protected 8:35:50 A # 20 IV was noted in the Hand (left). Grade = 0 8:35:50 Patient arrived on IV Solutions in Left Hand via Peripheral IV. Pump/Drip Flow using NaCl . 9. 8:35:51 History and physical on the chart or being dictated. Assessment: Initial Case, HR=62 BPM, Rhythm=sr, PRDG=188/88 mmhg, Chest Pain=0, Edema=None, Col or=Normal, Skin = Warm, Dry Right Pulses: [place] Ped=3, Femoral=3, Radial=3 8:35:52 Left Pulses: [place] Ped=3, Femoral=3 Neurological: State=Alert, Ox3, RAVI Respiration: Resp=22 B/min, SpO2=93 % Vitals capture started with the following parameters, Patient=Adult, Interval=5 min, Initial Pre vuizs=212 mmHg, 8:40:05 Deflation Rate=5 mmHg, Cuff placed on Left Arm 8:40:48 HR=70 bpm, USJC=797/88 mmhg, SpO2=94.0 %, Resp=18 B/min, Pain=0, Nando=10, Baires=2 8:41:58 Reference ECG taken 8:43:37 Disposable Defibrillator Pads Placed On Patient. 8:45:49 HR=58 bpm, NTFK=388/82 mmhg, SpO2=94.0 %, Resp=10 B/min, Pain=0, Nando=10, Baires=2 8:50:24 Right Radial and groin(s) prepped with 2% chlorhexidine, and draped after a 3 min. waiting t filomena. 8:50:46 HR=67 bpm, QCCF=406/83 mmhg, SpO2=95.0 %, Resp=23 B/min, Pain=0, Nando=10, Baires=2 8:54:53 MD arrived. 8:55:38 Right Radial and groin(s) prepped with 2% chlorhexidine, and draped after a 3 min. waiting t filomena. 8:55:49 HR=64 bpm, UPZM=807/89 mmhg, SpO2=94.0 %, Resp=20 B/min 8:59:44 Pressure channel 1 zeroed. Time Out. Correct patient, correct procedure, correct physician, labs, allergies, and equipment verified with laboratory assistant 9:00:17 team present. Fire risk assesment completed (see hard stop sheet for coding). Time Out Concu rred by MD and individual staff in procedure. 9:00:46 HR=70 bpm, HGIB=764/89 mmhg, SpO2=95.0 %, Resp=16 B/min 9:01:34 0.5 mg VERSED given in lab by Vazquez Khan RN in Left Hand via Peripheral IV. Ordered by Flavio Sosa 9:01:46 Case Start 5 mL 1% XYLOCAINE given in lab by Flavio Fields in Right Radial via Subcutaneous. Ordered by Donnie 9:02:25 Flavio Nicole 9::35 25 mcg FENTANYL given in lab by Vazquez Khan RN in Left Hand via Peripheral IV. Ordered by Flavio Fields 9:04:51 Access site was Right Radial Artery. 9:05:19 A wire was inserted via Radial (right). A SHEATH, FR6 TRANSRADIAL SLENDER 10CM FR 6 was advanced into the Radial (right) using the Percu carlton 9:05:25 technique. 5 mL (Bolus) RADIAL COCKTAIL given in lab by Flavio Fields in Right Radial via Radial. i nadeen [Solution Name]. 9:05:38 Ordered by Flavio Fields Reason: Ntg 200mcg Verapamil 2.5mg Heparin 4000U. 9:05:47 HR=70 bpm, OFWC=896/88 mmhg, SpO2=93.0 %, Resp=26 B/min A EBU 3.5 Z2 GUIDE CATHETER FR 6 was advanced over a wire. OMNIPAQUE, 350 MG, 150ML 150ML was us ed for 9:06:47 injections. 9:07:55 6000 units HEPARIN given in lab by Vazquez Khan RN in Left Hand via Peripheral IV. Ordered by Flavio Fields Recorded Pressure: LV, HR=74, Condition=Condition 1 9:08:37 (Left Ventricle) LV 126/6/13 Recorded Pressure: LV, Ao, HR=73, Condition=Condition 1 9:09:08 (Left Ventricle) LV 132/4/16, (Aorta) Ao 113/70/91 Recorded Pressure: Ao, HR=76, Condition=Condition 1 9:09:39 (Aorta) Ao 130/76/102 A EBU 3.5 Z2 GUIDE CATHETER FR 6 was advanced over a wire. OMNIPAQUE, 350 MG, 150ML 150ML was us ed for 9:10:07 injections. 9:10:50 HR=74 bpm, TPGR=834/71 mmhg, SpO2=91.0 %, Resp=20 B/min 9:14:03 A WIRE, BALANCE MIDDLEWEIGHT 190CM 190CM was inserted via Radial (right). 9:15:04 Interventional wire has crossed the lesion 9:15:47 HR=71 bpm, FEXL=739/78 mmhg, SpO2=92.0 %, Resp=19 B/min A BALLOON, 2.5 X 6MM EUPHORA 6MM was inserted over WIRE, BALANCE MIDDLEWEIGHT 190CM 190CM via th e 9:18:50 Radial (right). A BALLOON, 2.5 X 6MM EUPHORA 6MM over a WIRE, BALANCE MIDDLEWEIGHT 190CM 190CM in the LAD Mid wa s 9:20:07 inflated using a 30 SMILEY INDEFLATOR at 12 smiley for 30 sec. 9:20:50 HR=78 bpm, LFAG=479/96 mmhg, SpO2=93.0 %, Resp=19 B/min 9:21:41 Balloon Removed. 9:21:48 Activated Clotting Time Drawn A STENT, 3.0 12MM JOY 3.0 12MM was advanced through a EBU 3.5 Z2 GUIDE CATHETER FR 6 over a WIR E, 9:23:09 BALANCE MIDDLEWEIGHT 190CM 190CM. A STENT, 3.0 12MM JOY 3.0 12MM was deployed using a 30 SMILEY INDEFLATOR at 14 atmospheres for 30 seconds in 9:23:47 the LAD Mid. 9:24:22 ACT (Normal Range 90-180) = 416 9:24:51 Delivery device removed A BALLOON, 3.0 X 8MM NC EUPHORA 8MM was inserted over WIRE, BALANCE MIDDLEWEIGHT 190CM 190CM via the 9:26:15 Radial (right). 9:26:36 HR=70 bpm, WHEU=624/91 mmhg, SpO2=92.0 %, Resp=21 B/min A BALLOON, 3.0 X 8MM NC EUPHORA 8MM over a WIRE, BALANCE MIDDLEWEIGHT 190CM 190CM in the LAD Mid was 9:26:47 inflated using a 30 SMILEY INDEFLATOR at 14 smiley for 10 sec. A BALLOON, 3.0 X 8MM NC EUPHORA 8MM over a WIRE, BALANCE MIDDLEWEIGHT 190CM 190CM in the LAD Mid was 9:27:09 inflated using a 30 SMILEY INDEFLATOR at 20 smiley for 10 sec. 9:27:43 Balloon Removed. 9:30:18 BMW Wire removed 9:30:54 HR=70 bpm, RGRG=389/89 mmhg, SpO2=93.0 %, Resp=16 B/min 9:31:46 A WIRE, BALANCE MIDDLEWEIGHT 190CM 190CM was inserted via Fem Art (right). 9:32:26 Interventional wire has crossed the lesion 9:35:51 HR=63 bpm, HSPA=438/85 mmhg, SpO2=93.0 %, Resp=20 B/min A BALLOON, 3.0 X 12MM EUPHORA 12MM was inserted over WIRE, BALANCE MIDDLEWEIGHT 190CM 190CM via the 9:36:32 Radial (right). A BALLOON, 3.0 X 12MM EUPHORA 12MM over a WIRE, BALANCE MIDDLEWEIGHT 190CM 190CM in the CIRC Mid was 9:37:27 inflated using a 30 SMILEY INDEFLATOR at 14 smiley for 10 sec. 9:40:52 HR=69 bpm, MGXH=652/89 mmhg, SpO2=94.0 %, Resp=20 B/min 9:41:02 Balloon Removed. A STENT, 3.5 15MM JOY 3.5 15MM was advanced through a EBU 3.5 Z2 GUIDE CATHETER FR 6 over a WIR E, 9:42:18 BALANCE MIDDLEWEIGHT 190CM 190CM. A STENT, 3.5 15MM JOY 3.5 15MM was deployed using a 30 SMILEY INDEFLATOR at 12 atmospheres for 30 seconds in 9:43:07 the CIRC Mid. 9:44:46 Delivery device removed 9:45:55 HR=72 bpm, WBXE=452/94 mmhg, SpO2=95.0 %, Resp=8 B/min A BALLOON, 4.0 X 8MM NC EUPHORA 8MM was inserted over WIRE, BALANCE MIDDLEWEIGHT 190CM 190CM via the 9:46:27 Radial (right). A BALLOON, 4.0 X 8MM NC EUPHORA 8MM over a WIRE, BALANCE MIDDLEWEIGHT 190CM 190CM in the CIRC Mi d was 9:48:09 inflated using a 30 SMILEY INDEFLATOR at 4 smiley for 10 sec. A BALLOON, 4.0 X 8MM NC EUPHORA 8MM over a WIRE, BALANCE MIDDLEWEIGHT 190CM 190CM in the CIRC Mi d was 9:48:50 inflated using a 30 SMILEY INDEFLATOR at 8 smiley for 10 sec. 9:49:18 Balloon Removed. 9:50:56 HR=74 bpm, RCRO=366/102 mmhg, SpO2=93.0 %, Resp=17 B/min A BALLOON, 4.0 X 8MM NC EUPHORA 8MM was inserted over WIRE, BALANCE MIDDLEWEIGHT 190CM 190CM via the 9:51:40 Radial (right). A BALLOON, 4.0 X 8MM NC EUPHORA 8MM over a WIRE, BALANCE MIDDLEWEIGHT 190CM 190CM in the CIRC Mi d was 9:52:23 inflated using a 30 SMILEY INDEFLATOR at 14 smiley for 10 sec. A BALLOON, 4.0 X 8MM NC EUPHORA 8MM over a WIRE, BALANCE MIDDLEWEIGHT 190CM 190CM in the CIRC Mi d was 9:53:02 inflated using a 30 SMILEY INDEFLATOR at 16 smiley for 10 sec. 9:53:22 Balloon Removed. 9:55:26 BMW Wire removed 9:55:55 HR=74 bpm, ZLNR=776/92 mmhg, SpO2=95.0 %, Resp=15 B/min 9:56:10 Catheter was removed 9:56:54 Case End (Physician broke scrub) Assessment: Final Case, HR=71 BPM, Rhythm=sr, RZYS=304/92 mmhg, Chest Pain=0, Edema=None, [place] r=Normal, Skin = Warm, Dry Right Pulses: [place] Ped=3, Femoral=3, Radial=3 9:57:03 Left Pulses: [place] Ped=3, Femoral=3 Neurological: State=Alert, Ox3, RAVI Respiration: Resp=22 B/min, SpO2=93 % 9:57:10 Catheter(s) removed without difficulty Radial Compression Device Used. 12 mLs of air placed in BAND, RADIAL COMPRESSION TR SHORT 24 2 4CM. Affected 9:57:12 hand 96 % O2 saturation. 9:57:14 No case complications noted. 9:57:16 Cine recording checked. 9:57:17 Bedside Report will be given. 9:57:22 A Left Heart Cath was performed. 10:00:54 HR=67 bpm, KBPA=961/96 mmhg, SpO2=95.0 %, Resp=22 B/min 10:05:05 180 mg BRILLINTA given in lab by Vazquez Khan RN in Per mouth via Oral. Ordered by Flavio Graham 10:05:49 DMRR=098/97 mmhg 10:07:57 Patient moved to stretcher 10:10:23 Vitals capture stopped. End Study - Contrast Media Used In Study Contrast Total Opened (mL) Total Used (mL) Total Wasted (mL) Omnipaque 170 170 0 End Study - Maximum Contrast Load Max Contrast Load (mL) 458.7 End Study - Radiation Exposure Fluoro Time (minutes) 9.9 End Study - Sheaths Sheaths Pulled By Sheath Hold Time (min) Serge Ellis End Study - Patient Disposition Complications Transferred To Interventional Outcome No Critical Care Bed successful
[2018-03-27] MEDS ORDERED: BRIL90TA PO (10:24)
[2018-03-27] MEDS ORDERED: LOSA25TA PO (10:24)
[2018-03-27] MEDS ORDERED: HYDROcodone/IBUPROFEN 7.5MG/200MG TAB PO PRN (11:45)
[2018-03-27] MEDS ORDERED: CARISOPRODOL 350 MG TAB PO PRN (11:45)
[2018-03-27] MEDS ORDERED: FUROSEMIDE 40 MG/4 ML VIAL ONE (12:25)
[2018-03-27] MEDS ORDERED: ALPRAZolam 0.25 MG TAB PO PRN (12:45)
[2018-03-27] MEDS ORDERED: FUROSEMIDE 40 MG/4 ML VIAL IV PUSH ONE (12:45)
--- NOTE | 2018-03-27 13:22 | EKG ---
Date Performed: 03/27/2018 Time Performed: 07:33:10 PTAGE: 67 years EKG: Sinus rhythm . Normal ECG No significant change from prior electrocardiogram. PREVIOUS TRACING : 03/13/2018 08.44 DOCTOR: Abel Boo Interpretating Date/Time 03/27/2018 13:21:03
--- NOTE | 2018-03-27 14:45 | MA ---
cc: Flavio Fields DO DATE: 03/27/2018 PROCEDURE: Left heart catheterization, coronary angiogram, moderate sedation 56 minutes, [place] drug-eluting stent (3 x 12) to the mid-LAD, [place] drug-eluting stent (3.5 x 15) to the proximal left circumflex. PREPROCEDURE DIAGNOSES: Multivessel coronary artery disease, chest pain/shortness of breath on multiple antianginals, abnormal stress test/computed tomography angiogram. POSTPROCEDURE DIAGNOSES: Multivessel coronary artery disease, status post [place] drug-eluting stent (3 x 12) to the mid-left anterior descending, [place] drug-eluting stent (3.5 x 15) to the proximal left circumflex. MEDICATIONS: Versed 0.5 mg, fentanyl 25 mcg, nitro 200 mcg, verapamil 2.5 mg, heparin 10,000 units, Brilinta 180 mg. CONTRAST USED: 170 mL. FLUOROSCOPY: 9.9 minutes. MODERATE SEDATION: 56 minutes. FRAILTY SCORE: 3. ESTIMATED BLOOD LOSS: 10 mL. PROCEDURAL SUMMARY: Yahir Stoddard is a pleasant 67-year-old male who sees my partner, Dr. Doll, in the office and underwent stress testing which was considered intermediate risk. He previously underwent diagnostic cardiac catheterization and was found to have multivessel disease. He was brought off the table and spoke with CT Surgery for consideration of bypass but decided that he would prefer multivessel PCI. Risks, benefits and alternatives were explained to him and he consented as such. He was brought to the lab and prepped in the usual sterile fashion. The right radial artery was accessed using a modified Seldinger technique and placement of a 5/6 [place] Slender sheath. This is easily aspirated and flushed. An EBU 3.5 guide was advanced to the ascending aorta and across the aortic valve for measurement of left ventricular pressure. This is pulled back across the valve showing no significant gradient of aortic stenosis. EBU 3.5 guide was engaged in the left main. Heparin was given as an anticoagulant. A BMW wire was advanced into the distal LAD. A Compliant balloon (2.5 x 6) was inflated over the lesion. An [place] drug-eluting stent (3 x 12) was placed over the lesion and inflated. ACT was checked at this time and it was 416. A Non-Compliant balloon (3 x 8) was used to post-dilate the lesion. Final angiogram of the LAD shows a well-opposed stent with no perforations or dissections. The wire was pulled back and then advanced. BMW wire was then pulled back and advanced into the distal left circumflex. A Compliant balloon (3 x 12) was used to predilate the lesion. An [place] drug-eluting stent (3.5 x 15) was placed over the lesion and inflated. A Non-Compliant balloon (4.0 x 8) was used at low pressure at the distal portion of the stent and higher pressure at the proximal portion of the stent as there was quite a bit of size mismatch between the proximal and distal portions. Balloon was removed. Final angiogram shows a well-opposed stent with no perforations or dissections. The wire was removed as well as guide catheter. The patient was given 180 mg of Brilinta. A radial band was placed over the arteriotomy site for hemostasis. The patient left the pit laborer cardiovascularly stable. FINDINGS: LEFT MAIN: Normal-sized vessel with no significant disease. It bifurcates into an LAD and circumflex. LAD: Normal-sized vessel with 30% disease in the proximal portion. Mid-portion has a focal 80% lesion and after this no significant disease. It does give off one diagonal which appears to have 60% ostial stenosis. LEFT CIRCUMFLEX: A moderate to large-sized vessel with a 70% lesion in the proximal portion. Distal to this, it gives off the first obtuse marginal, which is small to moderate-sized with 40% ostial stenosis. Distal to this, it supplies a posterolateral branch, which may also be somewhat co-dominant. There is no significant disease distally. LVEDP: 16. INTERVENTIONAL DATA: Lesion #1: Mid LAD. Lesion length 10, pre-JOE 3, post-JOE 3, post-stenosis 0. Lesion #2: Proximal left circumflex. Lesion length 12, pre-JOE 3, post-JOE 3, post-stenosis 0. SYNTAX SCORE:11. IMPRESSION: 1. Multivessel coronary artery disease for total revascularization. 2. Chest pain/shortness of breath on multiple medications. 3. Offered coronary artery bypass grafting, but the patient would prefer multivessel stenting (SYNTAX SCORE low at 11). RECOMMENDATIONS: 1. Mr. Stoddard underwent the first part of his multivessel percutaneous coronary intervention with stenting of his left anterior descending and circumflex. 2. He will continue on aspirin, Brilinta, statin and beta fozia therapy. He does have an ALLERGY TO EVERT INHIBITORS, so we will not plan on using that. He previously was on Losartan, but this was changed once he was started on Norvasc. We will plan on restarting him on his Losartan 25 mg daily. 3. We will plan to watch him overnight and if stable in the morning, discharge home with a plan for PCI of his RCA in the near future. 4. Eventually he will followup with Dr. Doll after his next procedure. Thank you for allowing me to see Yahir Stoddard. If there are any questions, please do not hesitate to call. Flavio Fields DO VGP/SB , 01:56 PM , 02:44 PM
[2018-03-27] MEDS ORDERED: LABETALOL HCL 100 MG/20 ML VIAL IV PUSH PRN (16:15)
[2018-03-27] MEDS: GEMFIBROZIL 600 MG TAB PO SCH (16:42)
[2018-03-27] MEDS ORDERED: TICAGRELOR 90 MG TAB PO SCH (18:00)
[2018-03-27] MEDS: METOPROLOL TARTRATE 25 MG TAB PO SCH (20:47)
[2018-03-27] MEDS: TICAGRELOR 90 MG TAB PO SCH (20:47)
[2018-03-27] MEDS ORDERED: ATORVASTATIN 40 MG TAB PO SCH (21:00)
[2018-03-27] MEDS ORDERED: busPIRone HCL 5 MG TAB PO SCH (21:00)
[2018-03-27] MEDS ORDERED: TERAZOSIN HCL 5 MG CAP PO SCH (21:00)
[2018-03-28] VITALS (13 sets, daily range): BP systolic 123–157; BP diastolic 77–82; PULSE 54–93; RESP 18; TEMP 98–98.4; O2SAT 96–98
[2018-03-28] MEDS: GEMFIBROZIL 600 MG TAB PO SCH (05:15)
[2018-03-28] MEDS ORDERED: LEVOTHYROXINE SODIUM 75 MCG TAB PO SCH (06:00)
[2018-03-28 06:23] LABS: AUTOMATED NEUTROPHIL # 5.2 TH/MM3 (1.8-7.7); BASOPHIL # 0.1 TH/MM3 (0-0.2); BASOPHIL % 0.8 % (0.0-2.0); EOSINOPHIL # 0.1 TH/MM3 (0-0.4); EOSINOPHIL % 1.8 % (0.0-4.0); HEMATOCRIT 40.5 % (39.0-51.0); HEMOGLOBIN 13.5 GM/DL (13.0-17.0); LYMPH % 22.8 % (9.0-44.0); LYMPHOCYTE # 1.8 TH/MM3 (1.0-4.8); MEAN CELL VOLUME 85.8 FL (80.0-100.0); MEAN CORPUSCULAR HEMOGLOBIN 28.6 PG (27.0-34.0); MEAN CORPUSCULAR HGB CONC 33.4 % (32.0-36.0); MEAN PLATELET VOLUME 7.4 FL (7.0-11.0); MONO % 8.1 % (0.0-8.0); MONOCYTE # 0.6 TH/MM3 (0-0.9); NEUT % 66.5 % (16.0-70.0); PLATELET COUNT 267 TH/MM3 (150-450); RED BLOOD COUNT 4.72 MIL/MM3 (4.50-5.90); RED CELL DISTRIBUTION WIDTH 14.5 % (11.6-17.2); WHITE BLOOD COUNT 7.9 TH/MM3 (4.0-11.0)
[2018-03-28 06:48] LABS: BICARBONATE 28.1 MEQ/L (21.0-32.0); CREATININE 1.05 MG/DL (0.60-1.30)
[2018-03-28] MEDS: METOPROLOL TARTRATE 25 MG TAB PO SCH (08:40)
[2018-03-28] MEDS: TICAGRELOR 90 MG TAB PO SCH (08:40)
[2018-03-28] MEDS ORDERED: POTASSIUM CHLORIDE 10 MEQ CAP PO SCH (09:00)
[2018-03-28] MEDS ORDERED: SERTRALINE HCL 50 MG TAB PO SCH (09:00)
[2018-03-28] MEDS ORDERED: FISH OIL CHOLECALCIFEROL PO SCH (09:00)
[2018-03-28] MEDS ORDERED: LOSARTAN 25 MG TAB PO SCH (09:00)
[2018-03-28] MEDS ORDERED: PANTOPRAZOLE SOD 20 MG DELAYED RELEASE TAB PO SCH (09:00)
[2018-03-28] MEDS ORDERED: ASPIRIN 81 MG CHEW TAB CHEW SCH (09:00)
--- NOTE | 2018-03-28 14:02 | PD.CARD.PN ---
Subjective Subjective Remarks Up and moving No complaints Overnight while sleeping he had blocked PACs Objective Vital Signs / I&O Vital Signs Date Time Temp Pulse Resp B/P (MAP) Pulse Ox O2 Delivery O2 Flow Rate FiO2 03/28/18 11:01 98.1 81 18 157/79 (105) 98 03/28/18 10:01 54 03/28/18 09:00 74 03/28/18 08:45 98.0 84 18 137/79 (98) 96 03/28/18 08:45 96 Room Air 03/28/18 08:00 54 03/28/18 07:01 54 03/28/18 05:40 80 03/28/18 05:00 74 03/28/18 04:00 98.4 93 18 156/82 (106) 96 03/28/18 04:00 Room Air 03/28/18 04:00 58 03/28/18 03:00 74 03/28/18 02:00 56 03/28/18 01:00 66 03/28/18 00:00 70 03/28/18 00:00 Room Air 03/28/18 00:00 98.2 67 18 123/77 (92) 96 03/27/18 23:00 64 03/27/18 22:28 20 03/27/18 22:00 70 03/27/18 21:00 78 03/27/18 20:00 77 03/27/18 20:00 98.8 80 20 151/80 (103) 95 03/27/18 20:00 Room Air 03/27/18 19:00 72 03/27/18 18:00 77 03/27/18 17:00 70 03/27/18 16:00 77 03/27/18 15:00 72 I/O 03/27/18 03/27/18 03/27/18 03/28/18 03/28/18 03/28/18 07:00 15:00 23:00 07:00 15:00 23:00 Intake Total 1105 ml 720 ml 739 ml Output Total 750 ml Balance 1105 ml -30 ml 739 ml Intake Oral 720 ml IV Total 1105 ml 739 ml Output Urine Total 750 ml Physical Exam GENERAL: NAD, AAOx3 SKIN: Warm and dry. HEAD: Atraumatic. Normocephalic. EYES: Pupils equal and round. No scleral icterus. No injection or drainage. ENT: No nasal bleeding or discharge. Mucous membranes pink and moist. NECK: Trachea midline. No JVD. CARDIOVASCULAR: Regular rate and rhythm. RESPIRATORY: No accessory muscle use. Clear to auscultation. Breath sounds equal bilaterally. GASTROINTESTINAL: Abdomen soft, non-tender, nondistended. Hepatic and splenic margins not palpable. MUSCULOSKELETAL: Extremities without clubbing, cyanosis, or edema. No obvious deformities. Right radial no hematoma NEUROLOGICAL: Awake and alert. No obvious cranial nerve deficits. Motor grossly within normal limits. Five out of 5 muscle strength in the arms and legs. Normal speech. PSYCHIATRIC: Appropriate mood and affect; insight and judgment normal. Laboratory Laboratory Tests Test 03/28/18 05:30 White Blood Count 7.9 TH/MM3 Red Blood Count 4.72 MIL/MM3 Hemoglobin 13.5 GM/DL Hematocrit 40.5 % Mean Corpuscular Volume 85.8 FL Mean Corpuscular Hemoglobin 28.6 PG Mean Corpuscular Hemoglobin Concent 33.4 % Red Cell Distribution Width 14.5 % Platelet Count 267 TH/MM3 Mean Platelet Volume 7.4 FL Neutrophils (%) (Auto) 66.5 % Lymphocytes (%) (Auto) 22.8 % Monocytes (%) (Auto) 8.1 % Eosinophils (%) (Auto) 1.8 % Basophils (%) (Auto) 0.8 % Neutrophils # (Auto) 5.2 TH/MM3 Lymphocytes # (Auto) 1.8 TH/MM3 Monocytes # (Auto) 0.6 TH/MM3 Eosinophils # (Auto) 0.1 TH/MM3 Basophils # (Auto) 0.1 TH/MM3 CBC Comment DIFF FINAL Differential Comment Blood Urea Nitrogen 14 MG/DL Creatinine 1.05 MG/DL Random Glucose 116 MG/DL Calcium Level 9.0 MG/DL Sodium Level 143 MEQ/L Potassium Level 3.4 MEQ/L Chloride Level 106 MEQ/L Carbon Dioxide Level 28.1 MEQ/L Anion Gap 9 MEQ/L Estimat Glomerular Filtration Rate 70 ML/MIN Assessment and Plan Problem List: (1) CAD (coronary artery disease) ICD Codes: I25.10 - Atherosclerotic heart disease of [place] coronary artery without angina pectoris (2) Angina of [place] ICD Codes: I20.8 - Other forms of angina pectoris (3) Angina pectoris ICD Codes: I20.9 - Angina pectoris, unspecified Assessment and Plan 1) CAD/angina MVCAD, refused surgery PCI of LAD and LCx with FLORENCIA ASA/Brilinta/BB/Statin/ARB Plan for PCI of RCA next week 2) Cardiovascularly stable for discharge Flavio Fields DO Mar 28, 2018 14:02
== END 2018-03-28 11:24 | disposition home or self-care (01) ==
LOC: HDIC 06:48 → HDOC 06:48 → HCIS 13:22 → HDOC 03-28 11:24
PROVIDERS: ATTEND Nuclear Medicine Nuclear Cardiology
DX: I25.119 Atherosclerotic heart disease of native coronary artery with unspecified angina pectoris (principal); I11.9 Hypertensive heart disease without heart failure; R06.02 Shortness of breath; E78.5 Hyperlipidemia, unspecified; E87.6 Hypokalemia; R53.83 Other fatigue; I38 Endocarditis, valve unspecified; Z01.818 Encounter for other preprocedural examination
CPT/HCPCS: 80048; 85002; 85025; 85610; 85730; 92928; 92929; 93005; 93458; 99152; 99153; C1725; C1769; C1874; C1887; C1893; J1644; J1940; J2250; J3010; J7030; Q9967